=== PATIENT | male | born 1955 | race Native Hawaiian/Other Pacific Islander ===

== ENCOUNTER 2017-01-26 11:36 | Outpatient (CLI) | payer OTHER | END 2017-01-26 11:37 | disposition home or self-care (01) | LOC: AMB 11:36 | DX: G81.94 Hemiplegia, unspecified affecting left nondominant side (principal); R51 Headache; Z72.0 Tobacco use | CPT/HCPCS: A0425; A0427 ==

== ENCOUNTER 2017-01-26 11:53 | Emergency (ER) | payer OTHER ==
[~2017-01-26] VITALS: Ht 177.8 cm; Wt 52.2 kg
[2017-01-26 12:12] VITALS: TEMP 98.4
[2017-01-26 12:28] LABS: PLATELET COUNT 833 K/uL (142-355)
[2017-01-26 12:36] LABS: POTASSIUM 3.7 mmol/L (3.6-5.2); SODIUM 135 mmol/L (136-145)
[2017-01-26 15:19] VITALS: BP 113/78
== END 2017-01-26 15:26 | disposition short-term general hospital (02) ==
LOC: ED 11:53
DX: I63.9 Cerebral infarction, unspecified (principal)
CPT/HCPCS: 36415; 80053; 85027; 93005; 96374; 99285; J1885

== ENCOUNTER 2021-02-22 11:50 | Emergency (ER) | payer OTHER ==
[~2021-02-22] VITALS: Ht 175.3 cm; Wt 56.7 kg
[2021-02-22 12:46] LABS: PLATELET COUNT 463 K/uL (142-355)
[2021-02-22 12:56] LABS: POTASSIUM 3.7 mmol/L (3.6-5.2); SODIUM 132 mmol/L (136-145)
[2021-02-22 14:40] VITALS: BP 120/86; TEMP 98
== END 2021-02-22 14:40 | disposition home or self-care (01) ==
LOC: ED 11:50
PROVIDERS: Emergency Medicine
DX: E16.1 Other hypoglycemia (principal); R64 Cachexia; E87.1 Hypo-osmolality and hyponatremia
CPT/HCPCS: 80048; 84484; 85027; 93005; 99283